=== PATIENT | male | born 1990 | race Caucasian/White ===

== ENCOUNTER 2020-11-16 12:45 | Emergency (ER) | payer OTHER, SELFPAY ==
--- NOTE | ~2020-11-16 | XR_ITS ---
EXAMINATION: XR HAND, LEFT CLINICAL INFORMATION: Base of the left thumb trauma. COMPARISON: None TECHNIQUE: PA, lateral, and oblique views of the left hand. FINDINGS: The bones and soft tissues are normal. No fracture. Alignment is anatomic. Joint spaces are maintained. No erosions or soft tissue calcifications. XR/XR hand LT min 3V IMPRESSION: Unremarkable left knee.
[2020-11-16 14:40] VITALS: BP 138/65; PULSE 86; RESP 16; TEMP 36.8; O2SAT 97; BMI 36.5
--- NOTE | 2020-11-16 14:51 | ED.WOUNDLAC ---
HPI - Wound/Laceration General Chief Complaint: Wound/Laceration Stated Complaint: thumb inj,work related Time Seen by Provider: 11/16/20 14:45 Source: patient Mode of arrival: ambulatory Limitations: no limitations History of Present Illness HPI narrative: 30 y/o male presenting with left thumb injury that he sustained at work while working with a drill. He states the 0.25 inch broke off and went through the base of his thumb. He does not have en exit wound. He does not recall if the entire drill bit was intact when it was removed. He is able to move his thumb but it hurts. He is up to date on his tetanus shot. He is not bleeding on arrival. Onset (ago): hour(s) (2) Extremity Location: left: hand (base of left thumb ) Place: work Patient tetanus UTD: Yes Context: accidental Associated symptoms: pain Treatments prior to arrival: bandage Related Data Previous Rx's Medication Instructions Recorded amoxicillin-pot clavulanate 1 tab PO BID #10 tab 11/16/20 [Augmentin] ibuprofen 600 mg PO Q8H PRN #20 tab 11/16/20 Allergies Allergy/AdvReac Type Severity Reaction Status Date / Time Unable to Assess Allergy Unverified 11/16/20 14:45 Review of Systems Review of Systems: Constitutional: No Fever, No Chills Gastrointestinal: No Nausea, No Vomiting Musculoskeletal: + joint pain, No Myalgias Skin: + Skin Lesions, No rash Neuro: No Weakness, No Numbness, No Dizziness, No Headache Psych: No Anxiety/Panic, No Depression Heme/Lymph: No Bruising, No Lymphadenopathy PMFSH Past Medical History Attestation statement: The following information was validated with the patient. Medical History No known health problems Social History Social History Smoked in Last 30 Days: No Use of substances other than those prescribed or required for medical reasons: No Advance Directives: No Advance Directives Information Provided: Yes Physical Exam Vital Signs: Vital Signs: Last Vital Signs Temp 98.3 F 11/16/20 14:40 Pulse 86 11/16/20 14:40 Resp 16 11/16/20 14:40 BP 138/65 11/16/20 14:40 Pulse Ox 97 11/16/20 14:40 Body Mass Index 36.5 Appearance: Alert. Oriented X3. No acute distress. HEENT: normal inspection CVS: Normal heart rate and rhythm. Pulses normal. Respiratory: No respiratory distress. Skin: Skin warm and dry. Normal skin color. Normal skin turgor. No rashes. Extremities: left thumb base with deep puncture wound 1cm, with irregular borders, fatty tissue exposed. Normal flexion and extension of the thumb. Neuro: Oriented X 3. No motor deficit. + sensory deficit, reports numbness to tip of left thumb. Course Course Course Narrative: 30 y/o male presenting with left hand wound after drill bit injury. XR shows no acute fracture, no retained metal. Wound was cleaned and irrigated aggressively. Tetanus is up to date. Augmentin was given to help prevent infection. 2 sutures placed for loose closure. Extensor and flexor tendon function is in tact. Procedures Laceration Laceration 1: Site: hand Side (If applicable): left Size (cm): 2 Description: flap, irregular and contaminated Depth: involves muscle layer Local Anesthetic: lidocaine 2% Pre-repair: wound explored, irrigated extensively, deep structures intact and wound margins revised Skin layer closed with: nylon Size (cm): 4-0 Number of sutures: 2 Critical Care Time Critical Care Time Critical Care Time: No Discharge Plan Discharge Clinical Impression: Laceration Patient Disposition: Home, Self-Care Instructions: Care For Your Stitches (ED), Laceration (ED) Additional Instructions: Your x-ray today did not show any fractures or retained pieces of metal. Come back to the ER or see your doctor in 10 days for removal of sutures. Do not get wound wet for the next 24 hours. After 24 hours you can briefly wash with soap and water and then pat dry. Recommend triple antibiotic ointment twice per day. Keep wound covered and clean. Monitor for signs of infection including redness, increase in pain, warmth, or drainage of pus. Follow up with your doctor as needed. Prescriptions: New amoxicillin-pot clavulanate [Augmentin] 875-125 mg tablet 1 tab PO BID Qty: 10 RF: 0 ibuprofen 600 mg tablet 600 mg PO Q8H PRN (Reason: pain) Qty: 20 RF: 0 Stand Alone Forms: Work/School Release
[2020-11-16] MEDS: Ibuprofen 600 MG TABLET PO (15:29)
[2020-11-16] MEDS: Amoxicillin/Potassium Clav 875 MG TABLET PO (15:29)
[2020-11-16] MEDS: Lidocaine HCl 2 % MPF 5 ML VIAL INFILTRATI (15:30)
== END 2020-11-16 16:05 | disposition home or self-care (01) ==
PROVIDERS: Emergency Provider Emergency Medicine; PCP Physician Assistant
DX: S61.012A Laceration without foreign body of left thumb without damage to nail, initial encounter (principal); W29.8XXA Contact with other powered hand tools and household machinery, initial encounter; Y93.9 Activity, unspecified; Y92.9 Unspecified place or not applicable; Y99.0 Civilian activity done for income or pay
CPT/HCPCS: 12001; 73130; 99283; 99284